=== PATIENT | female | born 1995 | race Caucasian/White ===

== ENCOUNTER → 2017-07-14 | Outpatient (CLI) | payer BC | LOC: COL.RAD 12:29 | DX: E04.1 Nontoxic single thyroid nodule (principal) ==

== ENCOUNTER → 2017-08-09 | Outpatient (CLI) | payer BC ==
[~2017-08-09] VITALS: Ht 175.3 cm; Wt 85.3 kg
[2017-08-09 12:46] VITALS: BP 131/88; PULSE 66
[2017-08-09 14:20] VITALS: BP 131/80; PULSE 67
== END ==
LOC: COL.RAD 12:31
DX: E04.1 Nontoxic single thyroid nodule (principal)

== ENCOUNTER 2018-07-16 14:29 | Inpatient (IN) | payer OTHER ==
[2018-07-16] VITALS (29 sets, daily range): BP systolic 117–165; BP diastolic 58–92; PULSE 67–111; TEMP 97.3–98.3
[~2018-07-16] VITALS: Ht 175.3 cm; Wt 94.1 kg
[2018-07-16] MEDS ORDERED: PRENATAL VITAMI1 TA3 PO (14:56)
--- NOTE | 2018-07-16 15:01 | NUR ---
1440 PT ARRIVES WITH COMPLAINTS OF CONTRACTIONS SINCE 1100 THIS AM THAT ARE GETTING STRONGER AND CLOSER TOGETHER. GOWN ON AND TO BED WITH MONITORS IN PLACE. SVE SHOW PT 3-4CM. PLAN OF CARE DISCUSSED.
[2018-07-16] MEDS ORDERED: PERCOCET 325 MG1 TA2 PO (16:04)
[2018-07-16] MEDS ORDERED: MOTRIN 800800 MG/TAB PO (16:04)
[2018-07-16 16:57] LABS: BASO % 0.2 % (0.0-2.0); EOS # 0.1 (0.0-0.7); EOS % 0.3 % (0-4.0); GRAN # 15.7 (1.4-6.5); GRAN % 82.6 % (42.2-75.2); HEMATOCRIT 39.2 % (37.0-47.0); HEMOGLOBIN 13.5 g/dl (12.5-16.0); LYMPH # 1.8 (1.2-3.4); LYMPH % 9.5 % (20.0-51.0); MEAN CELL VOLUME 90 fl (80.0-100.0); MEAN CORPUSCULAR HEMOGLOBIN 31 pg (27.0-31.0); MEAN CORPUSCULAR HGB CONC 34 g/dl (33.0-37.0); MEAN PLATELET VOLUME 10.6 fl (7.4-10.4); MONO # 1.3 (0.1-0.6); MONO % 6.9 % (1.7-9.3); PLATELET COUNT 282 K/mm3 (130-400); RED BLOOD COUNT 4.37 M/mm3 (4.10-5.30); REDCELL DISTRIBUTION WIDTH-CV 12.9 % (11.5-14.5)
--- NOTE | 2018-07-16 18:38 | NUR ---
1500 DR CORADO AWARE OF PT PRESENCE ONUNIT AND EXAM. ORDERS FOR ADMISSION REC'D
--- NOTE | 2018-07-16 18:41 | NUR ---
1540 IV STARTED ON FIST ATTEMPT AND PEN G DOSE STARTED/
--- NOTE | 2018-07-16 18:47 | NUR ---
1545 DR CORADO IN AND AROM PERFOMRED TOLERATED FAIRLY WELL. 1600 SITTING UP ON BIRTHING BALL. VERY UNCOMFORTABLE AND BREATHING WELLWITH CONTRACTIONS WITH ENCOURAGMENT.
--- NOTE | 2018-07-16 18:50 | NUR ---
1630 DISCUSSING PAINOPTIONS WITH PT. WANTS TO TRY STADOL TO SEE IF SHE CAN RELAX BETWEEN CONTRACTIONS. PT GETTING NO REST WITH 1.5-2 MIN SPACING OF CONTRACTIONS.
--- NOTE | 2018-07-16 18:52 | NUR ---
1700 PT MORE RELXED BUT STILL BRETHING WELL WITH CONTRACTIONS. SPOUSE AT BEDSIDE AND VERY SUPPORTIVE.
--- NOTE | 2018-07-16 18:53 | NUR ---
1730 PT REMAINS UNCOMFORTABLE AND BACK TO BREATHING NON-STOP WITH VERY LITTLE REST BETWEEN CONTRACTIONS.
--- NOTE | 2018-07-16 18:55 | NUR ---
1735 PT AND SPOUSE ASKING QUESTIONS ABOUT EPIDURAL AND OTHER OPTIONS FOR PAIN MANAGEMENT. OPTIONS DISCUSSED. AND PT NOW REQUESTING EPIDURAL PLACMENT. 1745 LR 100 ML STARTED AND INFUSING WIDE OPEN. CUPOLA MELTER HELPER NOTIFIED OF PT DESIRE FOR CATH PLACMENT. 1755 PT REPOSITIONED IN BED AND PORDECURE EXPLAINED. 1801 TEST DOSE GIVEN. 1805 PT REPOSITIONED IN BED WITH PILLOW UNDER RIGHT HIP. TOLERTED PLACEMENT WELL. 1810 REPORT TO NEXT SHIFT AND CARE ASSUMED BY SAME. PT STARTTING TO FEEL SLIGHTLY BETTER.
--- NOTE | 2018-07-16 20:00 | NUR ---
1800- Bedside report from ABENA Tenorio. Patient has just received an epidural and is resting in bed with complaints of pain on the right side at this time. ABENA Tenorio updated NANCY Quarles about patient's pain. 1829- SVE /-1. Proctor catheter inserted at this time. 1924- See Physician Notification. 1929- Pitocin started per protocol. See eMAR. 1949- Patient calls out with complaints of itching. Benadryl given. See eMAR. 2029- SVE 0. Patient has complaints of increased pressure in pelvis. Patient repositioned.
--- NOTE | 2018-07-16 22:00 | NUR ---
2114- See Physician Notification. 2129- SVE /+1. Patient has complaints of increased pelvic pressure. updated. 2148- at bedside. SVE Complete/+2. Practice pushes x3 performed with success. Room prepared for delivery. Nursery RN, Tootie notified. Patient continues to push with contractions. Proctor catheter removed. 2158- of viable baby girl. Cord clamped and cut. Pitocin off. [place] care assumed by ABENA Sommers. 2201- Manual removal of placenta after cord avulsion. Fundus boggy but massaged to firm by . Several clots noted. Pitocin infusing at 333 ml/hr. 2nd degree perineal laceration repaired by . Pericare completed. Ice pack applied. Fundal massage by ABENA Sommers.
[2018-07-17] VITALS: BP 125/62; PULSE 83; TEMP 98.6
[2018-07-17 04:00] VITALS: BP 136/76; PULSE 78; TEMP 97.7
--- NOTE | 2018-07-17 06:00 | NUR ---
0520- Patient ambulatory with adoptive mother of baby, Jennifer, to LDR-5. Patient oriented to room. Patient into restroom to change into gown. 0525- Patient into bed. Patient extremely uncomfortable with contractions. EFM and TOCO on and tracing. Patient states contractions started at 0330 and have been increasingly stronger since about every 5-10 minutes. Patient states she lost her mucus plug this morning also. Patient denies LOF or bleeding. Patient states she has had minimal spotting. Patient denies recent intercourse. 0540- SVE /2 by ABENA Sommers. Assessment completed. 0545- called and updated. Orders for admission received. [id number] Quarles CRNA called for epidural placement.
[2018-07-17 08:45] VITALS: BP 120/72; PULSE 80; TEMP 97.7
[2018-07-17 16:45] VITALS: BP 130/82; PULSE 83; TEMP 98.2
[2018-07-17 20:00] VITALS: BP 138/88; PULSE 86; TEMP 99
[2018-07-18] VITALS: BP 132/79; PULSE 77; TEMP 97.8
[2018-07-18 04:00] VITALS: BP 119/80; PULSE 88; TEMP 98.1
[2018-07-18 09:15] VITALS: BP 120/72; PULSE 72; TEMP 97.9
--- NOTE | 2018-07-18 09:55 | NUR ---
Initial visit; Parents thanked Batting [employer] for offering congratulations and God's blessings for the of their daughter. [employer]ting [employer] thanked them for choosing [facility].
== END 2018-07-18 13:10 | disposition home or self-care (01) | DRG 807 ==
LOC: LDRO 14:29 → LDR 14:40 → OB 23:59
PROVIDERS: ADMIT Obstetrics & Gynecology
PROC: 10E0XZZ Delivery of Products of Conception, External Approach (ICD-10-PCS; principal; 2018-07-16)
PROC: 0KQM0ZZ Repair Perineum Muscle, Open Approach (ICD-10-PCS; 2018-07-16)
DX: O70.1 Second degree perineal laceration during delivery (principal); Z37.0 Single live birth; O62.1 Secondary uterine inertia; O99.824 Streptococcus B carrier state complicating childbirth; Z3A.40 40 weeks gestation of pregnancy
CPT/HCPCS: J0595; J2540; J2590; J7120